=== PATIENT | female | born 1980 | race Caucasian/White ===

== ENCOUNTER 2017-06-08 12:58 | Emergency (ER) | payer OTHER ==
[~2017-06-08] VITALS: Ht 160 cm; Wt 70.3 kg
--- NOTE | ~2017-06-08 | CT4 ---
[facility] A Service of [facility] & [facility] RADIOLOGY TEXT RESULTS PATIENT: SANJAY CARDENAS LOCATION: [facility] : 76 UNIT #: [id number] AGE: [address]: Les Kc MD SEX: F ORDER DR: [id number] [facility] [address] [place], [place] [address] [id number] E MR#: [id number] #: [id number] NAME: SANJAY ACRDENAS : 1980 SEX: F STUDY DATE/TIME: 06/08/2017 14:57 UNIT: [facility] ROOM: STUDY DESCRIPTION: CT Abd and Pelv Wo Cont Attending Physician: Les Kc M.D. Ordering Physician: Les Kc M.D. Primary Care Physician: No Primary Care Physician MEDICAL IMAGING REPORT This report is preliminary unless electronic signature is present EXAM CT of the abdomen and pelvis without contrast. DATE 06/08/2017 HISTORY Nausea, vomiting, diarrhea, chills and lower abdominal pain for [address] abdomen and pelvis, without contrast, 06/18/2009. PROCEDURE 3 mm noncontrast axial images through the abdomen and pelvis. Enteric contrast not administered. Sagittal and coronal reformatted images were obtained. This CT exam was performed with one or more of the following radiation dose reduction techniques: automatic exposure control, adjustment of mA and/or kV according to patient size, and iterative reconstruction. FINDINGS ABDOMEN FINDINGS: There is very mild dependent atelectasis in the lung bases, without consolidation. The noncontrast appearance of the liver, gallbladder, spleen, pancreas, adrenals and left kidney is within normal limits. A punctate stone is seen within the right mid kidney, and 2 small stones are seen within the right lower renal pole, largest measuring about 3 mm. There is mild right perinephric inflammatory change particularly along its lower pole. There is very mild right hydronephrosis and hydroureter but no definite ureteral stone is seen on this examination. A small calcification in the right hemipelvis is thought to be outside the course of the right ureter. The appendix is normal. Unopacified bowel appears grossly nonthickened [facility] A Service of [facility] & [facility] RADIOLOGY TEXT RESULTS PATIENT: SANJAY CARDENAS [id number] 76 UNIT #: [id number] AGE: [address]: Les Kc MD SEX: F ORDER DR: and noninflamed. No pathologic adenopathy is seen. PELVIS FINDINGS: Trace free fluid is demonstrated in the pelvis to the right of midline. Urinary bladder, uterus and rectum are within normal limits. No acute osseous abnormalities are identified. IMPRESSION 1. Mild right perinephric inflammatory stranding. There is mild, very mild right hydronephrosis and hydroureter. However, no ureteral stone is identified on this examination. Findings could represent changes of a recently passed right renal/ureteral stone. 2. Tiny calcification in the right hemipelvis is thought to represent a phlebolith, outside the course of the right ureter. 3. Trace pelvic free fluid. 4. The appendix is normal. 5. Nonobstructing right renal calculi. Dictated by... Kristen Merrill M.D. THIS IS AN ELECTRONICALLY VERIFIED REPORT Kristen Merrill M.D. at 06/09/2017 2:02 PM JAIRO/venu TD: 06/08/2017 19:37 JOB #: [id number] MEDICAL IMAGING REPORT Page 1 of 1 COPY
[~2017-06-08 12:58] MED LIST: ALBUTEROL17 GM INH; CLARITIN10 MG PO; IBUPROFEN800 MG PO; MEDROL4 MG/DOSE- PO; NO MEDICATIONS; PROMETHAZINE D118 ML PO; ROBITUSSIN A-C S5 ML PO; ZITHROMAX PO
[2017-06-08 14:04] LABS: URINE SOURCE CLEAN CATCH
[2017-06-08 14:11] LABS: BASOPHIL% 0.4 % (0-2.5); DIFF IND NO; EOSINOPHIL# 0.1 X10e3 (0-0.7); EOSINOPHIL% 0.7 % (0.0-7.0); HEMATOCRIT 40.4 % (35.0-45.0); LYMPHOCYTE# 2.4 X10e3 (1.0-3.5); LYMPHOCYTE% 23.7 % (17.0-45.0); MEAN CELL VOLUME 99.7 FL (83-96); MEAN CORPUSCULAR HEMOGLOBIN 34.5 PG (28-34); MEAN CORPUSCULAR HGB CONC 34.6 g/dL (30-36); MEAN PLATELET VOLUME 7.5 FL (6.5-11.5); MONOCYTE% 9.7 % (3.0-12.0); NEUTROPHIL# 6.6 X10e3 (1.5-7.1); NEUTROPHIL% 65.5 % (40-75); PLATELET COUNT 343 X10e3 (140-420); RED BLOOD COUNT 4.05 X10e (3.90-5.30); RED CELL DISTRIBUTION WIDTH 13.4 % (11.0-15.5); WHITE BLOOD COUNT 10.1 X10e3 (4.0-10.5)
[2017-06-08 14:20] LABS: URINE APPEARANCE CLOUDY; URINE COLOR YELLOW; URINE GLUCOSE NEG (NEG); URINE KETONE NEG (NEG); URINE LEUKOCYTE ESTERASE 3+ (NEG); URINE NITRATE NEG (NEG); URINE PROTEIN TRACE (NEG); URINE UROBILINOGEN NORM (NEG)
[2017-06-08 14:21] LABS: CULTURE INDICATED? YES; URBCS1 AUWI 0-2 /[HPF] (0-2); URINE BACTERIA AUWI 2+ (NEGATIVE); URINE BILIRUBIN NEG (NEG); URINE BLOOD TRACE (NEG); URINE SQUAMOUS EPITHELIAL CELL MODERATE /[HPF]
[2017-06-08 14:39] LABS: ALBUMIN SERUM 3.6 g/dL (3.5-5.0); BILIRUBIN, DIRECT 0.1 mg/dL (0.0-0.2); BILIRUBIN,INDIRECT 0.3 mg/dL (0.0-0.9); BILIRUBIN,TOTAL 0.4 mg/dL (0.2-2.0); BUN/CREATININE RATIO 11.42; CALCIUM SERUM 9.1 mg/dL (8.4-10.2); CREATININE SERUM 0.7 mg/dL (0.6-1.4); GLOM FILT RATE Estimated 109.1 mL/min (>60); POTASSIUM 3.5 mmol/L (3.5-5.1)
== END 2017-06-08 16:00 | disposition home or self-care (01) ==
LOC: CED 12:58
PROVIDERS: Emergency Medicine
DX: N13.2 Hydronephrosis with renal and ureteral calculous obstruction (principal); N39.0 Urinary tract infection, site not specified; F17.210 Nicotine dependence, cigarettes, uncomplicated
CPT/HCPCS: 36415; 74176; 80048; 80076; 81003; 83690; 84703; 85025; 87086; 87088; 87186; 96361; 96372; 96374; 99284; J0500; J2405